=== PATIENT | male | born 2000 | race Hispanic/Latino ===

== ENCOUNTER 2018-06-25 23:48 | Emergency (ER) | payer OTHER ==
[2018-06-26] MEDS ORDERED: LIDOCAINE 1% MPF 30 ML VIAL ONE (00:03)
[2018-06-26] MEDS ORDERED: MORPHINE 4 MG/ML SYR ONE (01:04)
[2018-06-26] MEDS ORDERED: TETANUS & DIPHTHERIA TOX,ADULT 0.5 ML VIAL ONE (01:05)
[2018-06-26] MEDS ORDERED: NA CHLORIDE 0.9% 100 ML IV ONE (01:06)
[2018-06-26] MEDS ORDERED: CEFAZOLIN SODIUM 1 GM/VIAL ONE (01:06)
[2018-06-26] MEDS ORDERED: BUPIVACAINE 0.5% PF 10 ML VIAL ONE (01:26)
--- NOTE | 2018-06-26 01:38 | ER ---
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 Trauma event details: Injury rr5 occurred in the [place], Injury occurred: [facility] Injury occurred: June 25, 2018 Injury occurred at: 23:15. 23:50 Presenting complaint: Patient states: my hand got caught and slam on the door 30 rr5 minutes ago (2315). 23:50 Transition of care: patient was not received from another setting of care. Onset of rr5 symptoms was June 25, 2018 at 23:15. Risk Assessment: Do you want to hurt yourself or someone else? Patient reports no desire to harm self or others. Initial Sepsis Screen: Does the patient meet any 2 criteria? No. Patient's initial sepsis screen is negative. Does the patient have a suspected source of infection? No. Patient's initial sepsis screen is negative. Note came from [facility]. escorted by 2 security. Care prior to arrival: None. 23:50 Method Of Arrival: Other rr5 23:50 Acuity: KARIS 3 rr5 23:50 Mechanism of Injury: Crush injury from door. rr5 Trauma Activation: Alert Physician: ED Physician; Name: dr. yuen; Notified At: 23:45; Arrived At: 23:45 Physician: General Surgeon; Name: ; Notified At: 23:45; Arrived At: Physician: Radiology; Name: zeke; Notified At: 23:45; Arrived At: 23:46 Physician: Respiratory; Name: ; Notified At: 23:45; Arrived At: Physician: Lab; Name: ; Notified At: 23:45; Arrived At: Historical: - Allergies: 23:45 No Known Allergies; rr5 - Home Meds: 23:45 None [Active]; rr5 - PMHx: 23:45 None; rr5 - PSHx: 23:45 None; rr5 - Immunization history:: Adult Immunizations up to date, Last tetanus immunization: up to date. - Social history:: Smoking status: Patient/guardian denies using tobacco, Patient/guardian denies using alcohol, street drugs. - Ebola Screening: : Patient negative for fever greater than or equal to 101.5 degrees Fahrenheit, and additional compatible Ebola Virus Disease symptoms Patient denies exposure to infectious person Patient denies travel to an Ebola-affected area in the 21 days before illness onset. Screenin/07 00:00 Abuse screen: Denies threats or abuse. Denies injuries from another. Nutritional rr5 screening: No deficits noted. Tuberculosis screening: No symptoms or risk factors identified. Fall Risk IV access (20 points). Total Aponte Fall Scale indicates No Risk (0-24 pts). Primary Survey: 06/25 23:45 NO uncontrolled hemorrhage observed. A: The patient is alert. Airway: patent, Oral rr5 cavity: clear, gag reflex present, blood present. 23:45 Breathing/Chest: Respiratory pattern: regular, Respiratory effort: spontaneous, rr5 unlabored. Circulation: Cardiac rhythm: sinus rhythm Heart tones present. Pulses: palpable right radial artery. Skin color: pink, Skin temperature: warm. Disability Alert. Exposure/Environment: There is no evidence of uncontrolled external bleeding. Obvious injury(ies) are noted at this time: right ring finger A warming method has been applied: A warm blanket has been provided to the patient. 06/26 00:45 Reassessment Airway Airway Patent Breathing/Chest Respiratory pattern Regular None rr5 Respiratory effort Spontaneous Unlabored Breath sounds Clear Chest inspection Symmetrical Circulation Heart rhythm Sinus rhythm Heart tones Present Disability Alert. Secondary Survey: 06/25 23:45 HEENT: No deficits noted. Gastrointestinal: No deficits noted. : No deficits noted. rr5 Musculoskeletal: Capillary refill < 3 seconds, Range of motion: intact in all extremities. Injury Description: Crush injury sustained to palmar aspect of distal phalanx of right ring finger and right ring fingernail. Assessment: 23:45 General: Appears in no apparent distress. uncomfortable, Behavior is calm, cooperative, rr5 appropriate for age. Pain: Complains of pain in palmar aspect of distal phalanx of right ring finger Pain does not radiate. Pain currently is 10 out of 10 on a pain scale. Quality of pain is described as aching, Pain began suddenly, Is intermittent, Alleviated by repositioning. 23:45 Neuro: Level of Consciousness is awake, alert, obeys commands, Oriented to person, rr5 place, time, situation, Appropriate for age. EENT: No signs and/or symptoms were reported regarding the EENT system. Cardiovascular: Capillary refill < 3 seconds Patient's skin is warm and dry. Respiratory: Airway is patent Respiratory effort is even, unlabored, Respiratory pattern is regular, symmetrical. GI: No signs and/or symptoms were reported involving the gastrointestinal system. : No signs and/or symptoms were reported regarding the genitourinary system. Derm: Skin temperature is warm Wound noted palmar aspect of distal phalanx of right ring finger and right ring fingernail. Musculoskeletal: Capillary refill < 3 seconds, Range of motion: intact in all extremities. Injury Description: Crush injury sustained to palmar aspect of distal phalanx of right ring finger and right ring fingernail. 06/26 01:25 Reassessment: Patient appears in no apparent distress at this time. awaiting for [facility] response for the transfer arrangement. 02:10 Reassessment: Patient appears in no apparent distress at this time. Patient is alert, rr5 oriented x 3, equal unlabored respirations, skin warm/dry/pink. awaiting for EMS transport. 03:00 Reassessment: Patient appears in no apparent distress at this time. Patient is alert, rr5 oriented x 3, equal unlabored respirations, skin warm/dry/pink. endorsed to [facility] vitally stable. Patient states feeling better. Patient states symptoms have improved. Vital Signs: 06/25 23:50 BP 163 / 93; Pulse 72; Resp 19; Temp 97.9; Pulse Ox 100% ; Weight 96.62 kg; Height 5 rr5 ft. 9 in. (175.26 cm); Pain 01/29; 06/26 00:50 BP 125 / 70; Pulse 75; Resp 16; Pulse Ox 99% ; rr5 01:37 BP 132 / 80; Pulse 79; Resp 18; Pulse Ox 100% ; rr5 02:00 BP 135 / 70; Pulse 76; Resp 16; Pulse Ox 99% ; rr5 02:59 BP 141 / 70; Pulse 70; Resp 18; Pulse Ox 99% ; rr5 03 23:50 Body Mass Index 31.45 (96.62 kg, 175.26 cm) rr5 Tahir Coma Score: 03 23:50 Eye Response: spontaneous(4). Verbal Response: oriented(5). Motor Response: obeys rr5 commands(6). Total: 15. Trauma Score (Adult): 23:50 Eye Response: spontaneous(1); Verbal Response: oriented(1); Motor Response: obeys rr5 commands(2); Systolic BP: > 89 mm Hg(4); Respiratory Rate: 10 to 29 per min(4); Johnson Score: 15; Trauma Score: 12 ED Course: 23:50 Arm band placed on. rr5 23:51 Patient arrived in ED. ds1 23:53 Khris Yuen MD is Attending Physician. ps1 23:59 Triage completed. rr5 03 00:00 Thermoregulation: warm blanket given to patient. rr5 00:00 Patient has correct armband on for positive identification. Bed in low position. Side rr5 rails up X2. Pulse ox on. NIBP on. 00:37 XRAY Hand RIGHT 3 View In Process Unspecified. EDMS 00:50 Nathaniel Grove RN is Primary Nurse. rr5 00:51 Missed attempt(s): 20 gauge in left antecubital area. Inserted saline lock: 22 gauge in ag4 right in left antecubital area, using aseptic technique. 01:25 Wound care: to. Wound care: to near amputation right ring finger located on palmar rr5 aspect of distal phalanx of right ring finger and right ring fingernail was cleaned with soaked in normal saline solution, dressed with 4X4s, Kerlix, Patient tolerated well. 01:40 Patient maintains SpO2 saturation greater than 95% on room air. rr5 02:18 No provider procedures requiring assistance completed. Patient transferred, IV remains rr5 in place. intact, No redness/swelling at site. 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 Lot #: [id number]. } Route: IM; Site: left deltoid; 01:52 Follow up: Response: No adverse reaction rr5 01:05 Drug: Ancef 2 grams Route: IVPB; Infused Over: 30 mins; Site: left antecubital; rr5 01:35 Follow up: Response: No adverse reaction; IV Status: Completed infusion; IV Intake: rr5 100ml 01:20 Drug: Bupivacaine (0.5 %) 3 ml {Note: by dr. uyen.} Volume: 10 ml; Route: rr5 Infiltration; 01:52 Follow up: Response: No adverse reaction rr5 Intake: 01:35 IV: 100ml; Total: 100ml. rr5 Output: 02:35 Urine: 550ml (Voided); Total: 550ml. rr5 Outcome: 01:38 ER care complete, transfer ordered by . ps1 02:00 awaiting for [facility] response.Patient's length of stay extended due to rr5 02:20 Transferred by ground EMS to [facility], Transfer form completed. rr5 02:20 Condition: stable 02:20 Instructed on the need for transfer. 03:01 Patient left the ED. rr5 Signatures: Dispatcher [employer] Maria Elena Mitchell ds1 Pema Mendes RN RN tl2 Khris Yuen MD MD ps1 Nathaniel Grove RN RN rr5 Anthony Pringle ag4
--- NOTE | 2018-06-26 01:39 | EDPHYS ---
Physician Documentation [facility] Name: Fernando Francis Age: 18 yrs Sex: Male : 2000 Arrival Date: 06/25/2018 Time: 23:51 Bed 3 Private MD: ED Physician Khris Yuen HPI: 06/26 00:06 This 18 yrs old Male presents to ER via Other with complaints of Finger Injury.ps1 00:06 right hand dominant male presenting with partial amputation of right ring finger at ps1 DIP. Patient states that he slammed door on hand. Pain rated as moderate. 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 Unknown tetanus. . Historical: - Allergies: 06/25 23:45 No Known Allergies; rr5 - Home Meds: 23:45 None [Active]; rr5 - PMHx: 23:45 None; rr5 - PSHx: 23:45 None; rr5 - Immunization history:: Adult Immunizations up to date, Last tetanus immunization: up to date. - Social history:: Smoking status: Patient/guardian denies using tobacco, Patient/guardian denies using alcohol, street drugs. - Ebola Screening: : Patient negative for fever greater than or equal to 101.5 degrees Fahrenheit, and additional compatible Ebola Virus Disease symptoms Patient denies exposure to infectious person Patient denies travel to an Ebola-affected area in the 21 days before illness onset. ROS: 06/26 00:06 Constitutional: Negative for fever, chills, and weight loss, Eyes: Negative for injury, ps1 pain, redness, and discharge, Cardiovascular: Negative for chest pain, palpitations, and edema, Respiratory: Negative for shortness of breath, cough, wheezing, and pleuritic chest pain, Abdomen/GI: Negative for abdominal pain, nausea, vomiting, diarrhea, and constipation, Skin: Negative for injury, rash, and discoloration, Neuro: Negative for headache, weakness, numbness, tingling, and seizure, Psych: Negative for depression, anxiety, suicide ideation, homicidal ideation, and hallucinations. MS/extremity: Positive for injury or acute deformity, deformity, of the palmar aspect of distal phalanx of right ring finger. Exam: 00:10 Constitutional: This is a well developed, well nourished patient who is awake, alert, ps1 and in no acute distress. Head/Face: Normocephalic, atraumatic. Eyes: Pupils equal round and reactive to light, extra-ocular motions intact. Lids and lashes normal. Conjunctiva and sclera are non-icteric and not injected. Chest/axilla: Normal chest wall appearance and motion. Nontender with no deformity. No lesions are appreciated. Cardiovascular: Regular rate and rhythm. No gallops, murmurs, or rubs. Normal PMI, no JVD. No pulse deficits. Respiratory: Lungs have equal breath sounds bilaterally, clear to auscultation and percussion. No rales, rhonchi or wheezes noted. No increased work of breathing, no retractions or nasal flaring. Abdomen/GI: Soft, non-tender, with normal bowel sounds. No distension or tympany. No guarding or rebound. No evidence of tenderness throughout. Neuro: Awake and alert, GCS 15, oriented to person, place, time, and situation. Cranial nerves II-XII grossly intact. Sensory grossly intact. Psych: Awake, alert, with orientation to person, place and time. Behavior, mood, and affect are within normal limits. 00:10 Musculoskeletal/extremity: Extremities: grossly normal except: noted in the palmar aspect of distal phalanx of right ring finger: decreased ROM, deformity, pain. Vital Signs: 06/25 23:50 BP 163 / 93; Pulse 72; Resp 19; Temp 97.9; Pulse Ox 100% ; Weight 96.62 kg; Height 5 rr5 ft. 9 in. (175.26 cm); Pain 10/; 06/26 00:50 BP 125 / 70; Pulse 75; Resp 16; Pulse Ox 99% ; rr5 01:37 BP 132 / 80; Pulse 79; Resp 18; Pulse Ox 100% ; rr5 02:00 BP 135 / 70; Pulse 76; Resp 16; Pulse Ox 99% ; rr5 02:59 BP 141 / 70; Pulse 70; Resp 18; Pulse Ox 99% ; rr5 06/25 23:50 Body Mass Index 31.45 (96.62 kg, 175.26 cm) rr5 Bodfish Coma Score: 06/25 23:50 Eye Response: spontaneous(4). Verbal Response: oriented(5). Motor Response: obeys rr5 commands(6). Total: 15. Trauma Score (Adult): 23:50 Eye Response: spontaneous(1); Verbal Response: oriented(1); Motor Response: obeys rr5 commands(2); Systolic BP: > 89 mm Hg(4); Respiratory Rate: 10 to 29 per min(4); Bodfish Score: 15; Trauma Score: 12 Procedures: 06/26 01:38 Nerve block: (digital) of palmar aspect of proximal phalanx of right ring finger ps1 Medication: Lidocaine 1% with epinephrine, Marcaine 0.5%, Amount: 4 mls were injected, Effect: the patient's symptoms are improved, Set up for procedure. Performed by Khris Yuen MD Patient tolerated well. MDM: 00:12 Patient medically screened. ps1 01:39 Data reviewed: vital signs, nurses notes, radiologic studies, and as a result, I will ps1 contemporaneously evaluated hand xray c/w comminuted tuft fracture. . 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 Lot #: [id number]. } Route: IM; Site: left deltoid; 01:52 Follow up: Response: No adverse reaction rr5 01:05 Drug: Ancef 2 grams Route: IVPB; Infused Over: 30 mins; Site: left antecubital; rr5 01:35 Follow up: Response: No adverse reaction; IV Status: Completed infusion; IV Intake: rr5 100ml 01:20 Drug: Bupivacaine (0.5 %) 3 ml {Note: by dr. yuen.} Volume: 10 ml; Route: rr5 Infiltration; 01:52 Follow up: Response: No adverse reaction rr5 Disposition: 06/26/18 01:[address] [facility]. 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 - Reason for transfer: Higher level of care. - Accepting physician is Celestino. - Condition is Stable. - Problem is new. - Symptoms have improved. Signatures: Dispatcher [employer] EDPema Newman RN RN tl2 Khris Yuen MD MD ps1 Nathaniel Grove RN RN rr5 Corrections: (The following items were deleted from the chart) 03:01 01:38 06/26/2018 01:[address] [facility]. 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 Reason for transfer: Higher level of care. Accepting physician is Celestino. Condition is Stable. Problem is new. Symptoms have improved. ps1
--- NOTE | 2018-06-26 08:22 | RAD REPORT ---
EXAM DESCRIPTION: RAD - Hand Right 3 View - 06/26/2018 12:36 am CLINICAL HISTORY: Right hand pain, smash injury fourth digit COMPARISON: None. FINDINGS: Comminuted fracture involves the tuft of the fourth distal phalanx. There is significant s oft tissue injury and suspected open fracture. Tip of the tuft is displaced ventrally. Several small fracture fragments are present along the main fracture line. No foreign body seen. Soft tissue swelling is present. No other bone, joint or soft tissue abnormalit y seen. IMPRESSION: Comminuted fracture involving the fourth distal phalanx as detailed.
== END 2018-06-26 03:01 | disposition short-term general hospital (02) ==
LOC: ER 23:48
DX: S68.124A Partial traumatic metacarpophalangeal amputation of right ring finger, initial encounter (principal); W23.0XXA Caught, crushed, jammed, or pinched between moving objects, initial encounter; Y93.9 Activity, unspecified; Y92.9 Unspecified place or not applicable; Z23 Encounter for immunization
CPT/HCPCS: 64450; 90714; 96365; 96375; 99285; J0690